=== PATIENT | male | born 1990 | race Caucasian/White ===

== ENCOUNTER 2022-03-07 08:22 | Outpatient (CLI) | payer MEDICAID, SELFPAY ==
[2022-03-07 08:38] LABS: Hematocrit 46.8 % (37.0-53.0); Mean Corpuscular HGB Conc 34 gm/dL (32-36); Mean Corpuscular Hemoglobin 33 pg (26-34); Mean Corpuscular Volume 97 fL (80-100); Platelet Count* 176 K/uL (140-440); Red Blood Count 4.81 m/uL (4.30-5.90)
[2022-03-07 08:43] LABS: Slide Review Reflex No
[2022-03-07 13:26] LABS: Albumin* 4.5 g/dL (3.3-5.0); Chloride* 104 mmol/L (96-114); Potassium* 4.6 mmol/L (3.6-5.1); Sodium* 137 mmol/L (135-149)
[2022-03-07 13:29] LABS: Alkaline Phosphatase* 57 U/L (40-150); Aspartate Amino Transferase* 32 U/L (12-35); Blood Urea Nitrogen* 16 mg/dL (5-24); Carbon Dioxide* 24 mmol/L (20-32); Cholesterol* 156 mg/dL (90-199); Creatinine* 0.8 mg/dL (0.5-1.5); Estimated Glomerular Filt Rate 121 ml/min; Total Protein* 7.3 g/dL (6.0-8.3)
[2022-03-07 13:30] LABS: Alanine Aminotransferase* 13 U/L (4-50); Calcium* 9.3 mg/dL (8.4-10.6); Glucose* 101 mg/dL (60-115); HDL Cholesterol* 55 mg/dL (>=40); LDL Cholesterol Calculated 91 mg/dL (<100); Triglycerides* 51 mg/dL (40-149)
== END 2022-03-07 08:23 | disposition home or self-care (01) ==
PROVIDERS: PCP Family Medicine; Visit Provider Family Medicine
DX: Z01.818 Encounter for other preprocedural examination (principal); Z13.6 Encounter for screening for cardiovascular disorders
CPT/HCPCS: 80053; 80061; 85027

== ENCOUNTER 2024-06-21 08:20 | Outpatient (CLI) | payer MEDICAID, SELFPAY | END 2024-06-21 08:21 | disposition home or self-care (01) | LOC: LKVREF 08:21 | PROVIDERS: Visit Provider Family Medicine | DX: Z13.21 Encounter for screening for nutritional disorder (principal) | CPT/HCPCS: 82306 ==